=== PATIENT | female | born 1965 | race Caucasian/White ===

== ENCOUNTER → 2021-09-10 | Outpatient (CLI) | payer OTHER | END | disposition home or self-care (01) | LOC: RADMN 11:31 | PROVIDERS: ATTEND General Practice | DX: M19.072 Primary osteoarthritis, left ankle and foot (principal); M47.816 Spondylosis without myelopathy or radiculopathy, lumbar region; M47.817 Spondylosis without myelopathy or radiculopathy, lumbosacral region; M48.07 Spinal stenosis, lumbosacral region; M25.78 Osteophyte, vertebrae; K56.609 Unspecified intestinal obstruction, unspecified as to partial versus complete obstruction; M79.672 Pain in left foot; M54.50 Low back pain, unspecified | CPT/HCPCS: 72100; 72220 ==